=== PATIENT | male | born 1950 | race Caucasian/White ===

== ENCOUNTER 2018-09-10 18:47 | Emergency (ER) | payer MEDICARE, MEDICAID, SELFPAY ==
[2018-09-10 19:30] VITALS: BP 151/98; PULSE 65; RESP 20; TEMP 36.9; O2SAT 99
[2018-09-10] MEDS: CLINDAMYCIN 150 MG CAPSULE 300 MG PO (22:03)
--- NOTE | 2018-09-10 22:15 | ED_ITS ---
HPI - Dental/Oral <STEPAN Guy - Last Filed: 09/10/18 22:19> General Chief complaint: Dental/Oral Stated complaint: states abcessed tooth is draining and feels sick Time Seen by Provider: 09/10/18 21:43 Source: patient and family Mode of arrival: ambulatory Limitations: no limitations History of Present Illness HPI Narrative: Patient is a 68-year-old male who presents with a chief complaint of a tooth abscess. He states he has had 4 tooth abscesses recently and this one has been going on for a week. He states it is draining. He states it is left front canine. He complains of subjective fevers of a degree or two. he states that he is feeling facial pain and facial pressure. Patient denies any allergies to antibiotics, but Sherry states that Keflex took out the lining of my large intestines but that penicillin got rid of all the bugs in me from [place]. complains of general malaise. He has not followed up with a dentist since this infection. He states that his previous dental abscess is approximately 2 weeks ago and treated with penicillin. patient denies any chest pain, shortness of breath, abdominal pain. Related Data Previous Rx's Medication Instructions Recorded clindamycin HCl 300 mg PO QID #40 cap 09/10/18 Allergies Allergy/AdvReac Type Severity Reaction Status Date / Time No Known Drug Allergies Allergy Verified 09/10/18 22:02 Review of Systems <STEPAN Guy - Last Filed: 09/10/18 22:19> Review of Systems GENERAL: See HPI HEENT: see HPI RESPIRATORY: Denies dyspnea, cough, wheezing, hemoptysis, sputum. CARDIOVASCULAR: Denies chest pain, palpitations, orthopnea, edema, GASTROINTESTINAL: Denies nausea, vomiting, abdominal pain, diarrhea, constipation, melena. : Denies dysuria, frequency, incontinence, hematuria, urinary retention. MUSCULOSKELETAL: denies weakness, joint pain, or bony pain SKIN: Denies rash, skin lesions, or other NEUROLOGIC: Denies weakness, headache, numbness, change in speech, confusion, seizures, incoordination. PSYCHIATRIC: No concerning psychosocial issues. 12 point review of systems is negative except for those stated above Exam <STEPAN Guy - Last Filed: 09/10/18 22:19> Narrative Exam Narrative: GENERAL: Elderly gentleman no acute distress HEAD: Atraumatic. Normocephalic. No temporal or scalp tenderness. pain to palpation of Frontal and maxillary sinuses. EYES: Pupils equal round and reactive. Extraocular motions intact. No scleral icterus. No injection or drainage. ENT: Nose without bleeding, purulent drainage or septal hematoma. Throat without erythema, tonsillar hypertrophy or exudate. Uvula midline. Airway patent. very poor dentition noted. Swelling noted left front uppercanine. Broken teeth throughout the mouth. Left front upper canine is broken. slight edema and erythema noted. NECK: Trachea midline. No JVD or lymphadenopathy. Supple, nontender, no meningeal signs. CARDIOVASCULAR: Regular rate and rhythm RESPIRATORY: Clear to auscultation. Breath sounds equal bilaterally. No wheezes , rales, or rhonchi. GASTROINTESTINAL: Abdomen soft, non-tender, nondistended. No hepato-splenomegaly , or palpable masses. No guarding. EXTREMITIES: No clubbing, cyanosis, or edema. No joint tenderness, effusion, or edema noted. BACK: Nontender without deformity or crepitance. No flank tenderness. NEURO: AOx3. SKIN: No rash or erythema. Initial Vital Signs Initial Vital Signs: Vital Signs Temperature 98.5 F 09/10/18 19:30 Pulse Rate 65 09/10/18 19:30 Respiratory Rate 20 09/10/18 19:30 Blood Pressure 151/98 H 09/10/18 19:30 Pulse Oximetry 99 09/10/18 19:30 <Crystal Aguirre DO - Last Filed: 09/11/18 20:43> Initial Vital Signs Initial Vital Signs: Vital Signs Temperature 98.5 F 09/10/18 19:30 Pulse Rate 65 09/10/18 19:30 Respiratory Rate 20 09/10/18 19:30 Blood Pressure 151/98 H 09/10/18 19:30 Pulse Oximetry 99 09/10/18 19:30 Course <BARRETT Guy - Last Filed: 09/10/18 22:19> Orders Ordered: Discontinued Medications Clindamycin HCl (Cleocin) 300 mg PO NOW ONE Stop: 09/10/18 22:00 Last Admin: 09/10/18 22:03 Dose: 300 mg Vital Signs - 8 hr 09/10/18 19:30 Temperature 98.5 F Pulse Rate 65 Respiratory Rate 20 Blood Pressure 151/98 H Pulse Oximetry 99 <Crystal Aguirre DO - Last Filed: 09/11/18 20:43> Orders Ordered: Discontinued Medications Clindamycin HCl (Cleocin) 300 mg PO NOW ONE Stop: 09/10/18 22:00 Last Admin: 09/10/18 22:03 Dose: 300 mg Vital Signs - 8 hr 09/10/18 19:30 Temperature 98.5 F Pulse Rate 65 Respiratory Rate 20 Blood Pressure 151/98 H Pulse Oximetry 99 MDM - Dental/Oral <Starla [id number]-BC - Last Filed: 09/10/18 22:19> MDM Narrative Medical decision making narrative: Patient is a 68-year-old male who presents with a chief complaint of a dental abscess. This is consistent with his exam and it appears to be draining. I will treat him with clindamycin as he just finished a round of penicillin for a different dental abscess. I discussed at length with him that he needs to follow up with a dentist given his multiple broken teeth, poor dentition and recurrent dental abscesses. He states he is too healthy to need doctors. I discussed at length taking the antibiotic with food as well as taking probiotics with it. Discussed return precautions. Patient has no questions or concerns upon discharge. Discharge Plan Departure Patient Disposition: Home Clinical Impression: Dental abscess Discharge Date/Time: 09/10/18 22:34 Interventions: ED Discharge Assessment Last Done: 09/10/18 22:33 Instructions: DI for Tooth Abscess Activity Restrictions/Additional Instructions: I am starting on an antibiotic for your dental abscess. This should be stronger than the penicillin that your on for her other dental infection 2 weeks ago. please take [id number] pain medications as needed and able for pain. Please use ice as well. Please follow-up with your dentist. Come back to the emergency department if you are unable to keep down fluids, have chest pain or shortness of breath. Prescriptions: New clindamycin HCl 300 mg capsule 300 mg PO QID Qty: 40 RF: 0 <Crystal Aguirre DO - Last Filed: 09/11/18 20:43> Cosign ED Attending Delfin Attestation: I was immediately available in the department for consultation. Documentation has been reviewed. I agree with assessment and plan.
[2018-09-10 22:34] VITALS: BP 144/83; PULSE 66; RESP 16; O2SAT 97
== END 2018-09-10 22:34 | disposition home or self-care (01) ==
PROVIDERS: Emergency Provider Nurse Practitioner Family
DX: K04.7 Periapical abscess without sinus (principal)
CPT/HCPCS: 99282; 99283

== ENCOUNTER → 2021-05-24 08:41 | Outpatient (CLI) | payer MEDICARE, MEDICAID, SELFPAY ==
[2021-05-24 20:22] LABS: Alanine Aminotransferase 26 IU/L (<50); Albumin 4.1 g/dL (3.5-5.0); Albumin Globulin Ratio 1.4 (1.0-2.8); Alkaline Phosphatase 58 U/L (38-126); Aspartate Aminotransferase 25 IU/L (17-59); BUN Creatinine Ratio 18.6 (6-22); Blood Urea Nitrogen 16 mg/dL (9-20); Calcium 9.3 mg/dL (8.4-10.2); Carbon Dioxide 25 mmol/L (22-32); Chloride 108 mmol/L (98-107); Cholesterol 159 mg/dL (140-199); Estimated Glomerular Filt Rate > 60.0 mL/min (>60); Globulin 2.9 g/dL (1.7-4.1); Glucose 106 mg/dL (80-110); HDL Cholesterol 38 mg/dL (40-60); HEMOLYSIS < 15 (0-50); LDL Cholesterol Calculated 104 mg/dL (<100); Potassium 4.5 mmol/L (3.4-5.1); Sodium 139 mmol/L (137-145); Triglycerides 87 mg/dL (35-150)
[2021-05-24 20:36] LABS: Add Manual Diff / Slide Review NO; Basophils Absolute Auto 100 /uL (0-100); Eosinophils Absolute Auto 100 /uL (0-450); Eosinophils Percent Auto 1.8 % (2-4); Hematocrit 49.2 % (41-53); Hemoglobin 17.2 g/dL (13.5-17.5); Lymphocytes Absolute Auto 1700 /uL (1100-4500); Lymphocytes Percent Auto 29.4 % (25-40); Mean Corpuscular HGB Conc 34.9 % (30-36); Mean Corpuscular Hemoglobin 32.6 PG (26-34); Mean Corpuscular Volume 93.5 fL (80-100); Monocytes Absolute Auto 400 /uL (0-900); Monocytes Percent Auto 7.2 % (3-14); Neutrophils Absolute Auto 3500 /uL (1500-7000); Neutrophils Percent Auto 60.6 % (50-75); Platelet Count 352 X10^3/uL (150-400); Red Blood Cell Count 5.26 X10^6/uL (4.5-5.9); Red Cell Distribution Width 13.2 % (11.6-14.8); White Blood Cell Count 5.8 X10^3/uL (4.5-11.0)
[2021-05-24 20:50] LABS: Prostate Specific Antigen Scrn 2.46 ng/mL (0.1-4.0); TSH w/ Reflex to FT4 0.84 uIU/mL (0.47-4.68)
== END ==
PROVIDERS: PCP Family Medicine; Visit Provider Family Medicine
DX: Z00.00 Encounter for general adult medical examination without abnormal findings (principal); I10 Essential (primary) hypertension; Z12.5 Encounter for screening for malignant neoplasm of prostate
CPT/HCPCS: 80053; 80061; 84443; 85025; G0103

== ENCOUNTER → 2024-01-21 09:53 | Outpatient (CLI) | payer MEDICARE, MEDICAID, SELFPAY ==
[2024-01-21 19:17] LABS: Alanine Aminotransferase 27 IU/L (<50); Albumin 4.2 g/dL (3.5-5.0); Albumin Globulin Ratio 1.4 (1.0-2.8); Alkaline Phosphatase 62 U/L (38-126); Aspartate Aminotransferase 48 IU/L (17-59); BUN Creatinine Ratio 25.5 (6-22); Bilirubin Total 0.9 mg/dL (0.2-1.3); Blood Urea Nitrogen 24 mg/dL (9-20); Calcium 9.1 mg/dL (8.4-10.2); Carbon Dioxide 25 mmol/L (22-32); Chloride 111 mmol/L (98-107); Estimated Glomerular Filt Rate > 60 mL/min (>60); Globulin 3.1 g/dL (1.7-4.1); Glucose 87 mg/dL (80-110); HEMOLYSIS < 15 (0-50); Potassium 4.1 mmol/L (3.4-5.1); Sodium 141 mmol/L (137-145); Total Protein 7.3 g/dL (6.3-8.2)
[2024-01-21 19:40] LABS: Add Manual Diff / Slide Review NO; Basophils Absolute Auto 100 /uL (0-100); Basophils Percent Auto 1.2 % (0-2); Eosinophils Absolute Auto 100 /uL (0-450); Eosinophils Percent Auto 1.2 % (2-4); Hematocrit 49.3 % (41-53); Hemoglobin 16.6 g/dL (13.5-17.5); Lymphocytes Absolute Auto 1600 /uL (1100-4500); Lymphocytes Percent Auto 23.8 % (25-40); Mean Corpuscular HGB Conc 33.7 % (30-36); Mean Corpuscular Hemoglobin 30.7 PG (26-34); Mean Corpuscular Volume 91.1 fL (80-100); Monocytes Absolute Auto 400 /uL (0-900); Monocytes Percent Auto 6.5 % (3-14); Neutrophils Absolute Auto 4500 /uL (1500-7000); Neutrophils Percent Auto 67.3 % (50-75); Platelet Count 334 X10^3/uL (150-400); Red Blood Cell Count 5.41 X10^6/uL (4.5-5.9); Red Cell Distribution Width 13.8 % (11.6-14.8); White Blood Cell Count 6.7 X10^3/uL (4.5-11.0)
[2024-01-21 20:00] LABS: TSH w/ Reflex to FT4 0.63 uIU/mL (0.47-4.68)
[2024-01-21 20:05] LABS: Vitamin B12 562 pg/mL (239-931)
[2024-01-21 20:23] LABS: Hemoglobin A1C% w Est Avg Glu 5.3 % (4.0-6.0)
[2024-01-21 20:45] LABS: Vitamin D 25 Hydroxy (D3) 64.7 ng/mL (30.0-100.0)
[2024-01-28 18:32] LABS: ANA Screen, IFA Negative (.)
== END ==
PROVIDERS: PCP Family Medicine; Visit Provider Family Medicine
DX: Z01.89 Encounter for other specified special examinations (principal); G62.9 Polyneuropathy, unspecified; R73.9 Hyperglycemia, unspecified; R53.83 Other fatigue; M79.671 Pain in right foot; M79.672 Pain in left foot; I10 Essential (primary) hypertension
CPT/HCPCS: 80053; 82306; 82607; 83036; 84443; 85025; 86038

== ENCOUNTER → 2024-02-06 13:27 | Outpatient (CLI) | payer MEDICARE, MEDICAID, SELFPAY ==
[2024-02-06 21:14] LABS: Erythrocyte Sedimentation Rate 14 MM/HR (0-15)
[2024-02-07 20:08] LABS: C-Reactive Protein Quant 4.3 mg/dL (<1.0)
[2024-02-08 19:41] LABS: Free Kappa Lt Chains, Serum 26.3 mg/L (3.3-19.4); Free Lambda Lt Chains,Serum 19.5 mg/L (5.7-26.3)
[2024-02-11 13:58] LABS: Albumin 3.6 g/dL (2.9-4.4); Alpha-1-Globulin 0.3 g/dL (0.0-0.4); Alpha-2-Globulin 0.8 g/dL (0.4-1.0); Gamma Globulin 1.1 g/dL (0.4-1.8); Globulin Total 3.4 g/dL (2.2-3.9)
== END ==
PROVIDERS: PCP Family Medicine; Visit Provider Family Medicine
DX: G62.9 Polyneuropathy, unspecified (principal)
CPT/HCPCS: 83883; 84155; 84165; 85651; 86140

== ENCOUNTER → 2024-02-20 13:02 | Outpatient (CLI) | payer MEDICARE, MEDICAID, SELFPAY ==
[2024-02-20 20:54] LABS: C-Reactive Protein Quant 1.7 mg/dL (<1.0)
[2024-02-22 04:10] LABS: Complement C3 145 mg/dL (82-167)
[2024-02-22 18:12] LABS: SS A Ro Sjogrens Antibody < 0.2 AI (0.0-0.9); SS B La Sjogrens Antibody < 0.2 AI (0.0-0.9)
== END ==
PROVIDERS: PCP Family Medicine; Visit Provider Family Medicine
DX: R79.82 Elevated C-reactive protein (CRP) (principal); G62.9 Polyneuropathy, unspecified
CPT/HCPCS: 86140; 86160; 86235

== ENCOUNTER → 2024-05-31 10:00 | Outpatient (CLI) | payer MEDICARE, MEDICAID, SELFPAY ==
--- NOTE | 2024-05-31 10:01 | DI.MRI.S_ITS ---
PROCEDURE: MR HEAD/BRAIN WO/W CON INDICATIONS: head trauma; dizziness TECHNIQUE: Noncontrast axial T1 spin echo, axial T2 fast spin echo, sagittal and axial FLAIR, coronal T2 fast spin echo, axial gradient echo, axial diffusion and ADC through the brain. After the administration of contrast, axial and coronal and sagittal T1 spin echo with fat saturation through the brain. COMPARISON: None. FINDINGS: Image quality: Excellent. CSF spaces: Basal cisterns are patent. No extra-axial fluid collections. Ventricles are normal in size and shape. Brain: No midline shift. No intracranial bleeds or masses. No abnormal intracranial enhancement. There is cerebral volume loss for age. There is periventricular white matter chronic small vessel ischemic change. The brainstem appears normal. Diffusion-weighted images demonstrate no acute infarct. No chronic ischemic insults. Normal intravascular flow voids are present. Skull and face: Calvarial marrow is normal in signal. Orbits appear normal. Sinuses: Sinuses and mastoids appear clear. IMPRESSION: No imaging explanation is found for this patient's presenting symptoms. No masses or abnormal enhancement can be seen. Dictated by: Wilmar Miranda M.D. on 06/02/2024 at 10:41 Approved by: Wilmar Miranda M.D. on 06/02/2024 at 10:42
== END ==
PROVIDERS: PCP Family Medicine; Referring Provider Family Medicine; Visit Provider Family Medicine
DX: S09.90XA Unspecified injury of head, initial encounter (principal); R42 Dizziness and giddiness; X58.XXXA Exposure to other specified factors, initial encounter
CPT/HCPCS: 70553; A9579

== ENCOUNTER → 2024-07-17 13:35 | Outpatient (CLI) | payer MEDICARE, MEDICAID, SELFPAY | PROVIDERS: Family Provider Family Medicine; PCP Family Medicine; Referring Provider Family Medicine; Visit Provider Family Medicine | DX: R79.82 Elevated C-reactive protein (CRP) (principal); G62.9 Polyneuropathy, unspecified; R20.0 Anesthesia of skin | CPT/HCPCS: 95886; 95913 ==

== ENCOUNTER → 2024-07-17 13:40 | Outpatient (CLI) | payer MEDICARE, MEDICAID, SELFPAY | PROVIDERS: Family Provider Family Medicine; PCP Family Medicine; Referring Provider Family Medicine; Visit Provider Family Medicine | DX: R79.82 Elevated C-reactive protein (CRP) (principal); G62.9 Polyneuropathy, unspecified; R20.0 Anesthesia of skin | CPT/HCPCS: 95886; 95912; 95913 ==

== ENCOUNTER → 2024-12-20 18:41 | Outpatient (CLI) | payer MEDICARE, MEDICAID, SELFPAY ==
[2024-12-20 19:38] LABS: Influenza A - CEPHEID Flu A NEGATIVE (NEGATIVE); Influenza B - CEPHEID Flu B NEGATIVE (NEGATIVE); Respiratory Syncytial Virus Negative (Negative)
[2024-12-20 19:40] LABS: COVID-19 CEPHEID 4-PLEX PCR Negative (Negative)
== END ==
PROVIDERS: Family Provider Family Medicine; PCP Family Medicine; Visit Provider Nurse Practitioner Family
DX: R05.9 Cough, unspecified (principal)
CPT/HCPCS: 0241U

== ENCOUNTER → 2024-12-20 18:46 | Outpatient (CLI) | payer MEDICARE, MEDICAID, SELFPAY ==
--- NOTE | 2024-12-20 18:49 | DI.RAD.S_ITS ---
PROCEDURE: XR CHEST 2V INDICATIONS: Cough TECHNIQUE: 2 views of the chest were acquired. COMPARISON: None. FINDINGS: Surgical changes and devices: None. Lungs and pleura: Lungs are clear. No pleural effusions or pneumothorax. Mediastinum: Mediastinal contours are normal. Heart size is normal. Bones and chest wall: No suspicious bony abnormalities. Soft tissues appear unremarkable. IMPRESSION: No acute cardiopulmonary abnormality is seen. Dictated by: Henrique Kohli M.D. on 12/20/2024 at 19:32 Approved by: Henrique Kohli M.D. on 12/20/2024 at 19:32
== END ==
PROVIDERS: Family Provider Family Medicine; PCP Family Medicine; Referring Provider Nurse Practitioner Family; Visit Provider Nurse Practitioner Family
DX: R05.9 Cough, unspecified (principal)
CPT/HCPCS: 0241U; 71046